=== PATIENT | male | born 2000 | race Caucasian/White ===

== ENCOUNTER 2023-11-30 16:12 | Emergency (ER) | payer BC ==
[2023-11-30] MEDS ORDERED: Ibuprofen 200 MG TAB ONE (16:59)
== END 2023-11-30 17:56 | disposition home or self-care (01) ==
LOC: CSHERS 16:12
DX: J06.9 Acute upper respiratory infection, unspecified (principal); F17.210 Nicotine dependence, cigarettes, uncomplicated
CPT/HCPCS: 71046